=== PATIENT | male | born 1945 | race Caucasian/White ===

== ENCOUNTER 2019-01-18 11:51 | Day surgery (SDC) | payer OTHER ==
[2019-01-18] MEDS ORDERED: CEFAZOLIN 2 GM/50 ML (PMX) 50 ML IVPB (13:00)
[2019-01-18] MEDS ORDERED: GLYCOPYRROLATE 0.4 MG INJ ×3 (13:29→13:34)
[2019-01-18] MEDS ORDERED: LIDOCAINE 2% (SDV) 5 ML INJ (13:29)
[2019-01-18] MEDS ORDERED: NEOSTIGMINE 3 MG/3 ML SYRINGE ×2 (13:29→13:34)
[2019-01-18] MEDS ORDERED: MEPERIDINE 100 MG INJ (13:29)
[2019-01-18] MEDS ORDERED: SUCCINYLCHOLINE CHLORIDE 100 MG/5 ML SYG IV (13:29)
[2019-01-18] MEDS ORDERED: ROCURONIUM 50 MG INJ (13:29)
[2019-01-18] MEDS ORDERED: PROPOFOL 20 ML (13:29)
[2019-01-18] MEDS ORDERED: CEFAZOLIN 1 GM INJ (13:34)
[2019-01-18] MEDS: LIDOCAINE 1%/EPI 30 ML INJ (14:15)
[2019-01-18] MEDS: BUPIVACAINE 0.5% (SDV) 30 ML INJ (14:15)
[2019-01-18] MEDS ORDERED: EPHEDrine 25 MG/5 ML SYG IV (14:30)
[2019-01-18] MEDS ORDERED: HYDROmorphONE 1 MG/5 ML IV SYRINGE IV ×3 (14:30)
[2019-01-18] MEDS ORDERED: MEPERIDINE 25 MG INJ IV (14:30)
[2019-01-18] MEDS ORDERED: METOCLOPRAMIDE 10 MG INJ IV (14:30)
[2019-01-18] MEDS ORDERED: hydrALAzine 20 MG INJ IV (14:30)
[2019-01-18] MEDS ORDERED: FENTAnyl 50 MCG/ML VIAL IV ×3 (14:30)
[2019-01-18] MEDS ORDERED: OXYCODONE/ACETAMINOPHEN (5/325) TAB PO ×2 (14:30)
[2019-01-18] MEDS ORDERED: DIPHENHYDRAMINE 50 MG INJ IV (14:30)
[2019-01-18] MEDS ORDERED: ONDANSETRON 4 MG INJ IV (14:30)
[2019-01-18] MEDS ORDERED: LABETALOL HCL 20MG INJ IV (14:30)
[2019-01-18] MEDS ORDERED: MIDAZOLAM 1 MG/ML 2 ML INJ IV (14:30)
[2019-01-18] MEDS ORDERED: IBUPROFEN 600 MG TAB PO (15:30)
[2019-01-18] MEDS ORDERED: morphine 10 MG INJ IM (15:30)
[2019-01-18] MEDS ORDERED: HYDROCODONE/APAP (5/325) TAB PO (15:30)
== END 2019-01-18 16:58 | disposition home or self-care (01) ==
LOC: SDS 11:51
DX: C43.59 Malignant melanoma of other part of trunk (principal); E66.9 Obesity, unspecified
CPT/HCPCS: 11606; 88305; 88342